=== PATIENT | male | born 1950 | race Caucasian/White ===

== ENCOUNTER 2018-07-26 11:00 | Inpatient (IN) | payer MEDICARE, BC ==
--- NOTE | 2018-07-26 12:03 | ED ---
Dizziness - HPI Summary HPI Summary: Patient is a 67 y/o w/ c/o dizziness onsetting around 0930/1000 this morning. N/ V, tremors, diaphoresis, is also reported. Patient's notes that he fell and struck his head on a chair as he was going to vomit at this time. He and denies LOC in patient. Patient does not remember the fall, reports several episodes of memory loss over the past 2 weeks. measured BP in patient this morning and reports it was 177/109. On triage, pain is rated 2/10 and nothing is noted to aggravate/alleviate Sx. In the room, he reports light- headedness and on triage slight YATES is reported. notes that a month ago, patient had BP and high cholesterol medications changed. He was changed from losartan 15 mg to 100 mg and is currently on rosuvastatin 10 mg. Allergies reviewed. - History Of Current Complaint Chief Complaint: EDSyncope Stated Complaint: POSS MEDICATION REACTION Time Seen by Provider: 07/26/18 11:48 Hx Obtained From: Patient Onset/Duration: Still Present - light headed in the room Timing: Weeks - past two weeks, memory loss Severity Currently: Mild - 2/10 Aggravating Factor(s): Nothing Alleviating Factor(s): Nothing Associated Signs And Symptoms: Positive: Nausea, Vomiting, Diaphoresis, Other: - POSITIVE: YATES, tremors, dizziness, light-headedness, high BP, memory loss NEGATIVE: LOC - Allergies/Home Medications Allergies/Adverse Reactions: Allergies Allergy/AdvReac Type Severity Reaction Status Date / Time No Known Allergies Allergy Verified 07/26/18 11:07 Home Medications: Home Medications Losartan Potassium 100 mg PO DAILY 07/26/18 [History Confirmed 07/26/18] Rosuvastatin Calcium 10 mg PO DAILY 07/26/18 [History Confirmed 07/26/18] PMH/Surg Hx/FS Hx/Imm Hx Cardiovascular History: Reports: Hx Hypertension GI History: Reports: Hx Gastroesophageal Reflux Disease Musculoskeletal History: Reports: Hx Arthritis Sensory History: Denies: Hx Contacts or Glasses, Hx Hearing Aid Opthamlomology History: Denies: Hx Contacts or Glasses - Cancer History Hx Chemotherapy: No Hx Radiation Therapy: No - Surgical History Surgery Procedure, Year, and Place: arthroscopic kumar knee Hx Anesthesia Reactions: No Infectious Disease History: No Infectious Disease History: Denies: Traveled Outside the [place] in Last 30 Days - Family History Known Family History: Positive: Hypertension - dad - Social History Substance Use Type: Reports: None Review of Systems Positive: Skin Diaphoresis, Other - tremors Positive: Other - high BP Positive: Vomiting, Nausea Neurological: Other - POSITIVE: dizziness, light-headedness, memory loss Positive: Headache. Negative: Syncope All Other Systems Reviewed And Are Negative: Yes Physical Exam - Summary Physical Exam Summary: Appearance: The patient is well-nourished in no acute distress and in no acute pain. Skin: The skin is warm and dry and skin color reflects adequate perfusion. Superficial 8 cm laceration on crown of head. HEENT: The head is normocephalic and atraumatic. The pupils are equal and reactive. The conjunctivae are clear and without drainage. Nares are patent and without drainage. Mouth reveals moist mucous membranes and the throat is without erythema and exudate. The external ears are intact. The ear canals are patent and without drainage. The tympanic membranes are intact. Neck: The neck is supple with full range of motion and non-tender. There are no carotid bruits. There is no neck vein distension. Respiratory: Chest is non-tender. Lungs are clear to auscultation and breath sounds are symmetrical and equal. Cardiovascular: Heart is regular rate and rhythm. There is no murmur or rub auscultated. There is no peripheral edema and pulses are symmetrical and equal. Abdomen: The abdomen is soft and non-tender. There are normal bowel sounds heard in all four quadrants and there is no organomegaly palpated. Musculoskeletal: There is no back tenderness noted. Extremities are non-tender with full range of motion. There is good capillary refill. There is no peripheral edema or calf tenderness elicited. Neurological: Patient is confused, oriented to person and place, has trouble with time. GCS 15. The patient has symmetrical motor strength in all four extremities. Cranial nerves are grossly intact. Deep tendon reflexes are symmetrical and equal in all four extremities. Psychiatric: The patient has an appropriate affect and does not exhibit any anxiety or depression. Triage Information Reviewed: Yes Vital Signs On Initial Exam: Initial Vitals Temp Pulse Resp BP Pulse Ox 97.6 F 48 18 160/88 97 07/26/18 11:02 07/26/18 11:07/26/18 11:07/26/18 11:02 07/26/18 11:02 Vital Signs Reviewed: Yes - Tracy Coma Scale Best Eye Response: 4 - Spontaneous Best Motor Response: 6 - Obeys Commands Best Verbal Response: 5 - Oriented Coma Scale Total: 15 Diagnostics - Vital Signs Vital Signs Temp Pulse Resp BP Pulse Ox 07/26/18 11:02 97.6 F 48 18 160/88 97 - Laboratory Result Diagrams: 07/26/18 12:11 07/26/18 12:11 Lab Statement: Any lab studies that have been ordered have been reviewed, and results considered in the medical decision making process. - Radiology CXR Xray Interpretation: No Acute Changes Radiology Interpretation Completed By: Radiologist - no evidence for acute disease; this report was reviewed by ED physician. - CT brain CT CT Interpretation: Positive (See Comments) CT Interpretation Completed By: Radiologist - #. Negative for intra or extra- axial #. Large region of vasogenic edema at the RIGHT cerebral hemisphere centered at the temporal lobe with mass effect including sulcal effacement, compression of the RIGHT lateral ventricle, and up to 0.6 cm RIGHT to LEFT midline shift/subfalcine herniation Suspicious for a primary tumor such as glioblastoma or a metastatic lesion. Contrast-enhanced MRI of the brain suggested for further assessment. This report was reviewed by ED imelda. - EKG 1227 Cardiac Rate: Bradycardia - rate of 49 BPM EKG Rhythm: Sinus Bradycardia ST Segment: Normal Ectopy: None EKG Interpretation: no STEMI Re-Evaluation - Re-Evaluation First Eval Re-Evaluation Time: 13:19 Comment: he is noted to have started shaking, but this is not seizure activity; patient reports he is slightly cold and was given blankets. Second Eval Re-Evaluation Time: 13:48 Change: Unchanged Comment: Discussed patient's labs and tests with patient and his . Further workup and consults will be done. Third Eval Re-Evaluation Time: 15:00 Change: Unchanged Comment: Discussed plan to admit patient. He is agreeable with this plan. Dizzy Course/Dx - Course Course Of Treatment: Mr. Arredondo was brought into the emergency department by his because of episodes of confusion, memory loss and nausea and vomiting. This morning he had an episode that was particularly bad and he fell trying to get to the bathroom to vomit. He went to his PCP about a week ago and the thought was that his hydrochlorothiazide was causing nausea and so that was stopped. Here in the emergency department he was noted to be confused and oriented only to person and place. At times he could answer questions completely appropriately and other times seem to be somewhat confused. A CT scan revealed a large right parietal mass with significant vasogenic edema. He was given dexamethasone and Dr. Hartley was consulted. He is being admitted to the hospitalist service for further workup and stabilization. - Diagnoses Provider Diagnoses: Intracranial mass - Provider Notifications Discussed Care Of Patient With: Aubrey Carbajal Time Discussed With Above Provider: 12:48 Instructed by Provider To: Other - Dr. Carbajal discussed CT brain findings with Dr. Carter at [phone] -- Dr. Hartley was consulted on patient's case. He recommends dexamethasone for patient. 13:33 -- Dr. Hartley was consulted once more on patient's case. 13:52 -- Lazaro consulted on possibility of admission, would like a neruo consult beforehand. 13:59 -- Dr. Bethea consulted on patient 's case, he is agreeable with plan. 14:35 -- Dr. Jon accepts patient for [place] [facility] [place] - Sign-Out/Discharge Documenting (check all that apply): Patient Departure - admit Signing out patient TO: Emy Jon Receiving patient FROM: Jarrod Carter - Discharge Plan Condition: Good Disposition: ADMITTED TO [facility] - Billing Disposition and Condition Condition: GOOD Disposition: Admitted to [facility] - Attestation Statements Document Initiated by Torres: Yes Documenting Scribe: Donovan Montez Provider For Whom Torres is Documenting (Include Credential): Jarrod Carter MD Scribe Attestation: Donovan Shields, scribed for Jarrod Carter MD on 07/26/18 at 1810. Scribe Documentation Reviewed: Yes Provider Attestation: The documentation as recorded by the Donovan lackey accurately reflects the service I personally performed and the decisions made by me, Jarrod Carter MD
[2018-07-26 12:26] LABS: ABS Basophils 0 10^3/ul (0-0.2); ABS Eosinophils 0 10^3/ul (0-0.6); ABS Lymphocytes 0.9 10^3/ul (1.0-4.8); ABS Monocytes 0.3 10^3/ul (0-0.8); ABS Neutrophils 8.6 10^3/ul (1.5-7.7); ABS Nucleated RBC 0 10^3/ul; Eosinophil % 0.1 % (0-6); Hematocrit 47 % (42-52); Hemoglobin 16.5 g/dl (14.0-18.0); Lymphocyte % 8.7 % (25-47); Mean Corpuscular HGB Conc 35 g/dl (31-36); Mean Corpuscular Hemoglobin 32 pg (27-31); Mean Corpuscular Volume 92 fL (80-94); Mean Platelet Volume 7.9 um3 (7.4-10.4); Nucleated Red Blood Cells % 0; Platelet Count 163 10^3/ul (150-450); Red Blood Count 5.12 10^6/ul (4.00-5.40); Red Cell Distribution Width 13 % (10.5-15); White Blood Count 9.8 10^3/ul (3.5-10.8)
[2018-07-26 12:32] LABS: INR 0.93 (0.77-1.02)
--- NOTE | 2018-07-26 12:52 | RAD ---
Indication: Fell and hit head. Laceration top of head. Does not remember fall. Memory loss. Comparison: No relevant prior exams available on the [facility] PACS for comparison. Technique: Noncontrast CT vertex of skull through foramen magnum. Report: Large region of vasogenic appearing edema involving the RIGHT temporal lobe with extension to the RIGHT frontal lobe and inferior aspect of the RIGHT parietal lobe. Associated effacement of the overlying cerebral sulci, compression of the RIGHT lateral ventricle, and up to 0.6 cm RIGHT to LEFT midline shift at the level of the septum pellucidum. The basal cisterns remain patent. Negative for intra or extra-axial hemorrhage. Unremarkable orbital contents. Negative for calvarial or skull base fracture. No scalp hematoma evident. Suggestion of a bandage at the vertex of the scalp corresponding with history of laceration. IMPRESSION: #. Negative for intra or extra-axial #. Large region of vasogenic edema at the RIGHT cerebral hemisphere centered at the temporal lobe with mass effect including sulcal effacement, compression of the RIGHT lateral ventricle, and up to 0.6 cm RIGHT to LEFT midline shift/subfalcine herniation Suspicious for a primary tumor such as glioblastoma or a metastatic lesion. Contrast-enhanced MRI of the brain suggested for further assessment. #. Results discussed with Dr. Carter 07/26/2018 12:48 PM EDT
--- NOTE | 2018-07-26 12:53 | RAD ---
INDICATION: Altered mental status. COMPARISON: Comparison is made with a prior study from September 18, 2012. TECHNIQUE: A portable view of the chest was obtained. FINDINGS: Cardiac and mediastinal contours appear to be within normal limits. The lungs are clear. No pleural effusion is seen. IMPRESSION: NO EVIDENCE FOR ACUTE DISEASE.
[2018-07-26] MEDS ORDERED: Dexamethasone IV* 4 MG/ML 1 ML (4 MG) IV SLOW PU ONE (12:54)
[2018-07-26] MEDS ORDERED: Acetaminophen TAB* 325 MG PO PRN (15:14)
[2018-07-26] MEDS ORDERED: PROCHLORPERAZINE INJ 5 MG/ML 2 ML VIAL IV PRN (15:14)
[2018-07-26] MEDS ORDERED: LORazepam TAB(*) 0.5 MG PO ONE (15:17)
[2018-07-26] MEDS ORDERED: LORazepam INJ* 2 MG/ML 1 ML VIAL IV PUSH ONE (16:21)
[2018-07-26] MEDS: Dexamethasone IV* 4 MG/ML 1 ML (4 MG) IV SLOW PU SCH ×2 (16:27→20:28)
[2018-07-26] MEDS ORDERED: Gadoteridol* (CONTRAST) 279.3 MG/ML 10 ML IV ONE (16:46)
--- NOTE | 2018-07-26 17:21 | RAD ---
INDICATION: Further characterization of what appears to be a right temporal lobe tumor COMPARISON: Same day CT examination of the brain TECHNIQUE: Sagittal T1, axial T1, T2, susceptibility, FLAIR and diffusion-weighted images were obtained. In addition, axial, sagittal and coronal T1-weighted images were obtained following intravenous injection of 15 mL of ProHance contrast. FINDINGS: Located within the medial aspect of the right temporal lobe is a heterogeneous mass exhibiting a maximum axial dimension of 3.4 x 3.7 cm that is hypointense on T1-weighted image and mostly hyperintense but heterogeneous on T2-weighted imaging. In the coronal plane this mass measures up to 4.7 cm in greatest cephalocaudal dimension. There is a smaller satellite lesion measuring 11 mm in greatest dimension located at the right thalamus exhibiting similar signal intensity and enhancement. There is vasogenic edema involving the right temporal lobe adjacent to this mass. Leptomeningeal meningeal enhancement is seen along the posterior right ventricle. There is mass effect compressing the left ventricle and causing approximately 5 mm of right to left midline shift. Elsewhere the oropeza-white matter differentiation is adequately maintained. No areas of restricted diffusion are present. There is no evidence for infarct or hemorrhage. The visualized portion of the paranasal sinuses and mastoid air cells appear clear. 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 The MR signal characteristics, enhancement and distribution favors a primary brain malignancy.
[2018-07-26] MEDS ORDERED: Dexamethasone IV* 4 MG in NS 0.9% 50 ML* 50 ML IVPB SCH (20:00)
--- NOTE | 2018-07-26 21:36 | HP ---
CC: Dr. Orellana HISTORY AND PHYSICAL: DATE OF ADMISSION: 07/26/18 TIME OF EVALUATION: 3:10 p.m. CHIEF COMPLAINT: "He is confused" as per . HISTORY OF PRESENT ILLNESS: Mr. Arredondo is a 67-year-old male with a past medical history of hyperten angel luis, GERD, osteoarthritis, who was seen by his primary care provider end of May for uncontrolled hy pertension. At that time, his losartan was increased from 50 to 100 mg a day and hydrochlorothiazide was added. He states that after that change, he started to feel dizzy, lightheaded, had multiple ep isodes of nausea and vomiting and he blamed his symptoms on the new medication. He was seen by Dr. Birch last week and his hydrochlorothiazide was discontinued and losartan was continued on the same dose. He states that the nausea and vomiting improved, but he continued to fee l dizzy especially with change in position. The also reports that she noted episode of confusio n that had nothing to do with memory issues. The patient got everything ready to go to return books to the library and he had told her he was going to put the trash out and after that, he will go to [employer]. When he returned home, she asked if he had gone to the library and he did not even rememb er mentioning the plan before. The patient denies headache, but he states that his head feels "heavy." There is no fever, chills, w eight loss, chest pain, palpitations, shortness of breath, or urinary complaints. PAST MEDICAL HISTORY: 1. Hypertension. 2. GERD. 3. Osteoarthritis. MEDICATIONS: 1. Losartan 100 mg p.o. daily. 2. Rosuvastatin 10 mg p.o. daily. ALLERGIES: No known drug allergies. FAMILY HISTORY: Mother of breast cancer. Father had dementia. SOCIAL HISTORY: There is no history of tobacco or drug use. The patient occasionally has some wine. The surrogate decision maker is his , Manuela Arredondo, phone number is [phone]. REVIEW OF SYSTEMS: A 14-point review of systems was performed and all the pertinent negative and pos itive findings are in the HPI. PHYSICAL EXAMINATION GENERAL: The patient is a pleasant gentleman, lying in the ED stretcher, in no acute distress. VITAL SIGNS: Temperature 97.6, heart rate is 52, respiratory rate is 16, oxygen saturation 97% on ro om air, blood pressure is 141/80. HEENT: Pupils are equal and reactive to light. CHEST: Breath sounds present bilaterally. No added sounds. CVS: Normal S1 and S2. Regular rate and rhythm. ABDOMEN: Soft. Bowel sounds present. EXTREMITIES: No edema. NEURO: Cranial nerves II through XII grossly intact. He is alert, awake, oriented x2 to self and pl harlan and able to move all 4 extremities with no focal neuro deficits. DIAGNOSTIC STUDIES/LAB DATA: The patient had a CBC that showed WBC of 9.8, hemoglobin of 16.5, lisa tocrit of 47, platelets of 163 with 85% neutrophils. INR is 0.9. Chemistry showed a sodium of 140, potassium of 4.0, chloride of 104, bicarb of 30, BUN of 17, creatinine of 0.8, glucose of 126, lactic acid of 2.3, calcium of 9.0. LFTs were normal. TSH is 0.38. CT of the brain without contrast show ed large region of vasogenic edema at the right cerebral hemisphere centered at the temporal lobe wit h mass defect including sulcal effacement, compression of the right lateral ventricle, and now up to 0.6 cm right to left midline shift/subfalcine herniation suspicious for primary tumor such as gliobla stoma or metastatic lesion. Chest x-ray showed no evidence for acute disease. ASSESSMENT AND PLAN: Mr. 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 1. Right temporal tumor. The case was discussed with Neurosurgery (Dr. Bethea) and he will see the patient in consultation. At this point, he is going to be admitted to telemetry floor. He will be monitored with neuro checks and we are going to continue Decadron for his vasogenic edema. Dr. Roni salazar recommended MRI of the brain with and without contrast and later on, CT of the chest, abdominal, a nd pelvis to rule out primary tumor. Antiepileptic drugs are not indicated at this time as the patie nt has not had any seizures. The impression is that this mass is likely a glioblastoma and further r ecommendations will be made after further imaging obtained. The patient will be placed on seizure pr ecautions. 2. Hypertension. We will continue losartan. 3. DVT prophylaxis: The patient has a score of 2 on the DVT Prophylaxis Risk Assessment Guide and w e are going to avoid pharmacologic prophylaxis in the setting of this brain lesion. He will have SCD s. 4. Code status is full. TIME SPENT: Approximately 45 minutes were spent with the patient's interview, medical records review , physical examination to complete the admission, more than half of this time was spent dobo-[id number]-ycum with the patient and coordination of care. [id number]/[facility] #: [id number]
[2018-07-27] MEDS: Dexamethasone IV* 4 MG/ML 1 ML (4 MG) IV SLOW PU SCH ×4 (02:13→19:56)
[2018-07-27 05:03] LABS: Urine Appearance Clear; Urine Blood 1+ (Negative); Urine Color Yellow; Urine Ketones Negative (Negative); Urine Protein Negative (Negative); Urine Red Blood Cell 1+(3-5/hpf) (Absent); Urine Specific Gravity 1.028 (1.010-1.030); Urine Urobilinogen Negative (Negative); Urine White Blood Cell Trace(0-5/hpf) (Absent)
[2018-07-27 05:24] LABS: ABS Basophils 0 10^3/ul (0-0.2); ABS Eosinophils 0 10^3/ul (0-0.6); ABS Monocytes 0.2 10^3/ul (0-0.8); ABS Neutrophils 10.5 10^3/ul (1.5-7.7); ABS Nucleated RBC 0 10^3/ul; Eosinophil % 0 % (0-6); Hematocrit 47 % (42-52); Hemoglobin 16.2 g/dl (14.0-18.0); Lymphocyte % 8.6 % (25-47); Mean Corpuscular HGB Conc 35 g/dl (31-36); Mean Corpuscular Hemoglobin 32 pg (27-31); Mean Corpuscular Volume 91 fL (80-94); Mean Platelet Volume 8.5 um3 (7.4-10.4); Nucleated Red Blood Cells % 0; Platelet Count 179 10^3/ul (150-450); Red Blood Count 5.11 10^6/ul (4.00-5.40); Red Cell Distribution Width 13 % (10.5-15); White Blood Count 11.7 10^3/ul (3.5-10.8)
[2018-07-27 05:41] LABS: EGFR Non-African American 94.3 (>60)
[2018-07-27] MEDS: Losartan TAB* 25 MG PO SCH (08:23)
[2018-07-27] MEDS: Atorvastatin* 20 MG TAB PO SCH (08:24)
[2018-07-27] MEDS: Pantoprazole IV* 40 MG IV SCH (08:28)
--- NOTE | 2018-07-27 10:50 | PN ---
Progress Note - Progress Note Date of Service: 07/27/18 SOAP: Subjective: []Patient seen and examined Has several week history of nausea ,mild confusion initially felt to be due to changes in BP meds. Seen in ER yesterday where CT showed right temporal mass. MRI suggestive of primary brain neoplasm.No complaints of headache. Patient feels better since steroids started. Objective: [] Awake, alert Neuro intact Assessment: [] Probable primary brain tumor Plan: []Long discussion with patient and extended family Will need surgery likely followed by chemo,and radiation Discussed potential d/c in am after another 24 hrs of IV steroids They are going to consider treatment options and locations
--- NOTE | 2018-07-27 17:14 | PN ---
Subjective Date of Service: 07/27/18 Interval History: Pt mental status improved, less confused though still intermittently so. Able to walk to bathroom with assistance. Pt had fallen twice as an outpatient. Sister and Brother in Law both physicians and at bedside with questions and asking advice. Objective Active Medications: Acetaminophen (Tylenol Tab*) 650 mg PO Q6H PRN PRN Reason: pain/fever Atorvastatin Calcium (Lipitor*) 20 mg PO DAILY [facility]; Protocol Last Admin: 07/27/18 08:24 Dose: 20 mg Dexamethasone Sodium Phosphate (Decadron Iv*) 4 mg IV SLOW PU Q6H [facility] Last Admin: 07/27/18 13:41 Dose: 4 mg Losartan Potassium (Cozaar Tab*) 100 mg PO DAILY [facility] Last Admin: 07/27/18 08:23 Dose: 100 mg Pantoprazole Sodium (Protonix Iv*) 40 mg IV DAILY [facility] Last Admin: 07/27/18 08:28 Dose: 40 mg Prochlorperazine Edisylate (Compazine Inj*) 5 mg IV Q6H PRN PRN Reason: NAUSEA/VOMITING Vital Signs - 8 hr 07/27/18 07/27/18 10:54 14:59 Temperature 98.6 F 98.5 F Pulse Rate 87 63 Respiratory 16 17 Rate Blood Pressure 115/67 118/58 (mmHg) O2 Sat by Pulse 92 95 Oximetry Oxygen Devices in Use Now: None Appearance: NAD Eyes: No Scleral Icterus, PERRLA Neck: NL Appearance and Movements; NL JVP, Trachea Midline Respiratory: Symmetrical Chest Expansion and Respiratory Effort, Clear to Auscultation Cardiovascular: NL Sounds; No Murmurs; No JVD, RRR Abdominal: NL Sounds; No Tenderness; No Distention, No Hepatosplenomegaly Extremities: No Edema Skin: No Rash or Ulcers, No Nodules or Sclerosis Neurological: Alert and Oriented x 3, NL Sensation, NL Muscle Strength and Tone , - - CN II-XII intact, FTN largely and Rapid alternating hands largely intact though slower with right hand. Strength intact. Nutrition: Taking PO's Result Diagrams: 07/27/18 04:58 07/27/18 04:58 Additional Lab and Data: Laboratory Results - last 24 hr 07/26/18 07/27/18 07/27/18 17:38 04:47 04:58 WBC 11.7 H RBC 5.11 Hgb 16.2 Hct 47 MCV 91 MCH 32 H MCHC 35 RDW 13 Plt Count 179 MPV 8.5 Neut % (Auto) 89.5 H Lymph % (Auto) 8.6 L [place] % (Auto) 1.7 Eos % (Auto) 0 Baso % (Auto) 0.2 Absolute Neuts (auto) 10.5 H Absolute Lymphs (auto) 1.0 Absolute Monos (auto) 0.2 Absolute Eos (auto) 0 Absolute Basos (auto) 0 Absolute Nucleated RBC 0 Nucleated RBC % 0 Sodium Potassium Chloride Carbon Dioxide Anion Gap BUN Creatinine Est GFR ( Amer) Est GFR (Non-Af Amer) BUN/Creatinine Ratio Glucose Lactic Acid 1.7 Calcium Urine Color Yellow Urine Appearance Clear Urine pH 5.0 Ur Specific Rillito 1.028 Urine Protein Negative Urine Ketones Negative Urine Blood 1+ A Urine Nitrate Negative Urine Bilirubin Negative Urine Urobilinogen Negative Ur Leukocyte Esterase Negative Urine WBC (Auto) Trace(0-5/hpf) Urine RBC (Auto) 1+(3-5/hpf) A Urine Bacteria Absent Urine Glucose Negative 07/27/18 04:58 WBC RBC Hgb Hct MCV MCH MCHC RDW Plt Count MPV Neut % (Auto) Lymph % (Auto) [place] % (Auto) Eos % (Auto) Baso % (Auto) Absolute Neuts (auto) Absolute Lymphs (auto) Absolute Monos (auto) Absolute Eos (auto) Absolute Basos (auto) Absolute Nucleated RBC Nucleated RBC % Sodium 139 Potassium 4.5 Chloride 101 Carbon Dioxide 29 Anion Gap 9 BUN 18 Creatinine 0.82 Est GFR ( Amer) 114.1 Est GFR (Non-Af Amer) 94.3 BUN/Creatinine Ratio 22.0 H Glucose 142 H Lactic Acid Calcium 9.3 Urine Color Urine Appearance Urine pH Ur Specific Rillito Urine Protein Urine Ketones Urine Blood Urine Nitrate Urine Bilirubin Urine Urobilinogen Ur Leukocyte Esterase Urine WBC (Auto) Urine RBC (Auto) Urine Bacteria Urine Glucose Assess/Plan/Problems-Billing Assessment: 67 yo male PMH HTN presenting with AMS, nausea/vomiting, dizziness, falls and found to have 3.4x3.7x4.7 cm brain mass right temporal lobe w/ right thalamus satellite lesion and 0.6 cm midline and subfalcine shift concerning for primary brain malignancy. Improved symptoms on decadon. NS Neema following. - Patient Problems (1) Brain malignancy Current Visit: Yes Status: Acute Code(s): C71.9 - MALIGNANT NEOPLASM OF BRAIN, UNSPECIFIED SNOMED Code(s): 347493233 Comment: Appreciate assistance of Dr. Mayberry. Family and patient is deciding where he wants to get the required surgery. Names they have mentioned are [facility] (Dr. Burgos was recommended by Dr. Mayberry), [facility] and [facility]. Continue decadron. Neurochecks q2 (2) HTN (hypertension) Current Visit: Yes Status: Acute Code(s): I10 - ESSENTIAL (PRIMARY) HYPERTENSION SNOMED Code(s): 33204942 Comment: Continue losartan 100mg daily. (3) Altered mental status Current Visit: Yes Status: Acute Code(s): R41.82 - ALTERED MENTAL STATUS, UNSPECIFIED SNOMED Code(s): 492036266 Comment: Likely 2/2 brain mass and mass effect. Greatly improved with steroids. Status and Disposition: medicine inpatient. Possible discharge 07/28
[2018-07-28] MEDS: Dexamethasone IV* 4 MG/ML 1 ML (4 MG) IV SLOW PU SCH ×2 (02:26→08:46)
[2018-07-28] MEDS: Losartan TAB* 25 MG PO SCH (08:44)
[2018-07-28] MEDS: Atorvastatin* 20 MG TAB PO SCH (08:44)
[2018-07-28] MEDS: Pantoprazole IV* 40 MG IV SCH (08:45)
[2018-07-28 09:17] VITALS: BP 147/72
[2018-07-28] MEDS ORDERED: Dexamethasone TAB* 4 MG PO SCH (14:00)
--- NOTE | 2018-07-28 23:39 | DS ---
DISCHARGE SUMMARY: DATE OF ADMISSION: 07/26/18 DATE OF DISCHARGE: 07/28/18 PRIMARY CARE PROVIDER: Dr. Orellana ADMITTING PHYSICIAN: Dr. Zamora. ATTENDING PHYSICIAN ON THE DAY OF DISCHARGE: Jordan Dozier MD CONSULTING NEUROSURGEON: Ryne Bethea MD CHIEF COMPLAINT: Confusion, nausea, vomiting, dizziness. 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 HISTORY OF PRESENT ILLNESS AND HOSPITAL COURSE: Carson Arredondo is a 67-year- old male with past medical history of hypertension, GERD, osteoarthritis, who has been having his hypertension medications adjusted with increased from losartan 50 to 100 mg a day in addition of hydrochlorothiazide. Please see [facility] for full details, but briefly he started to become dizzy , lightheaded and had multiple episodes of nausea, vomiting, which were attributed to the medication changes. He followed up with Dr. Birch of [place]. The hydrochlorothiazide was discontinued. Losartan continued. The nausea and vomiting improved, but the dizziness with position change did not. He then had an episode where he told his he was going to return books to the library, but when he returned home he did not remember even that being part of the plan. He presented to [facility] Emergency Room and had a CT noncontrast of the head, which demonstrated a large region of vasogenic edema of the right cerebral hemisphere centered at the temporal lobe with mass effect including sulcal effacement, compression of the right lateral ventricle and up to 0.6 cm right to left midline shift/subfalcine herniation. There was suspicion for primary tumor such as glioblastoma or metastatic lesion per radiologist. An MRI of the brain with and without any contrast demonstrated 3.4 x 3.7 cm ( hypointense on T1, hyperintense, but heterogeneous on T2) with additional coronal measurement of 4.7 cm of greatest cephalocaudal dimension. There was additionally an 11 mm satellite lesion at the right thalamus. There was vasogenic edema again confirmed, leptomeningeal enhancement seen along the posterior right ventricle. Again this was all concerning for primary brain malignancy. The patient was admitted to the hospitalist service and Dr. Bethea of Neurosurgery consulted on the case. The patient was started on Decadron 4 mg IV q.6 hours with marked improvement of his orientation and confusion. Initially, he was only oriented to self. There were multiple conversations between Dr. Bethea and the family about prognosis and further treatment options. Ultimately, decision was made to pursue further followup and consultation at [facility]. He has been able to walk and has had no focal neurological findings on discharge. He intermittently was not oriented to place. Additional studies included chest x- ray, which demonstrated no evidence for acute disease. The EKG, which demonstrated sinus bradycardia (heart rate 49) and left ventricular hypertrophy. No ST elevations or depressions. There is T-wave inversion in V1. The patient has been fairly active, but not particularly his entire life and surrounded by supportive family including sister and [id number] who are physicians. Their plan is to take the [employer] bus to [facility] for further evaluation at [facility]. He was advised by Dr. Bethea not to drive. DISCHARGE MEDICATIONS: Include, 1. Losartan 100 mg p.o. daily. 2. Rosuvastatin 10 mg p.o. daily. 3. Dexamethasone 4 mg p.o. t.i.d. (new). 4. Protonix 20 mg p.o. daily. (new). DIET: Heart-healthy, unchanged. FOLLOWUP: Please follow up with Dr. Charity Orellana (his primary care physician). The patient plans to pursue neurosurgical evaluation for surgery, likely necessary radiation and chemotherapy depending on tumor pathology at [facility] in [facility]. They were given 2 discs, one to potentially send and one to keep at all times on the person. TIME SPENT ON DISCHARGE: 35 minutes. [id number]/[facility] #: [id number] [facility]ITAL[facility]
[2018-07-29] MEDS ORDERED: Omeprazole CAP* 20 MG PO SCH (09:00)
== END 2018-07-28 14:37 | disposition home or self-care (01) | DRG 54 ==
LOC: ED 11:00 → MEDTELE 15:12 → OBSVTOIN 07-27 11:48
PROVIDERS: ADMIT Internal Medicine; ATTEND Internal Medicine
DX: D49.6 Neoplasm of unspecified behavior of brain (principal); G93.6 Cerebral edema; G93.5 Compression of brain; I10 Essential (primary) hypertension; K21.9 Gastro-esophageal reflux disease without esophagitis; E78.5 Hyperlipidemia, unspecified; M19.90 Unspecified osteoarthritis, unspecified site; Z79.899 Other long term (current) drug therapy; Z80.3 Family history of malignant neoplasm of breast
CPT/HCPCS: 36415; 70450; 70553; 71045; 80048; 80053; 81003; 81015; 83605; 84443; 84484; 85025; 85610; 87086; 93005; 99284; A9270-GY; A9579; G0378; J1100; J2060; J8540